=== PATIENT | male | born 1950 | race Caucasian/White ===

== ENCOUNTER 2020-03-09 11:30 | Inpatient (IN) ==
[2020-03-09] MEDS ORDERED: 0.9 % Sodium Chloride 1,000 ML IVC SCH (12:00)
[2020-03-09] MEDS ORDERED: *HR* Heparin 10,000 UNIT/10 ML VIAL ONE (12:54)
[2020-03-09] MEDS ORDERED: ISOVUE-370 200 ML INFUS..BTL ONE (12:54)
[2020-03-09] MEDS ORDERED: Heparin 1,000 UNITS/500 mL 500 ML ONE (12:54)
[2020-03-09] MEDS ORDERED: 0.9 % Sodium Chloride 1,000 ML ONE (12:54)
[2020-03-09] MEDS ORDERED: *HR* Midazolam HCl 2 MG/2 ML VIAL ONE ×2 (12:54→13:31)
[2020-03-09] MEDS ORDERED: Nitroglycerin 1,000 MCG/10 ML VIAL IV ONE (12:55)
[2020-03-09] MEDS ORDERED: Acetaminophen 325 MG TABLET PO PRN (13:57)
[2020-03-09 16:25] LABS: INR 1.1
[2020-03-09 16:27] LABS: Activated Partial Thrombo Time 32.7 Seconds (26.0-36.0)
[2020-03-09 16:39] LABS: BUN/Creatinine Ratio 15 (6-26); Blood Urea Nitrogen 14 mg/dL (8-23); Calcium 9.8 mg/dL (8.6-10.3); Carbon Dioxide 29 mEq/L (23-29); Chloride 101 mEq/L (98-107); Chol/HDL Ratio 3.9 (0-4.9); Cholesterol 141 mg/dL (< 200); Glucose 146 mg/dL (70-105); HDL Cholesterol 36 mg/dL (40-59); LDL Cholesterol,Calculated 69 mg/dL (< 100); Osmolality,Calculated 289 (280-300); Potassium 3.6 mEq/L (3.5-5.1); Sodium 138 mEq/L (136-145); Triglycerides 179 mg/dL (< 150); eGFR For African Americans > 60 (> 60); eGFR For Non-African Americans > 60 (> 60)
[2020-03-09 16:44] LABS: Basophils % 0.2 %; Eosinophils # 0.1 K/mcL (0.0-0.6); Eosinophils % 1.2 %; Hematocrit 45.6 % (37.5-50.1); Hemoglobin 15.9 g/dL (12.9-16.9); Immature Granulocytes % 0.1 % (0-4); Lymphocytes # 2.4 K/mcL (0.6-4.6); Lymphocytes % 28.7 %; Mean Corpuscular HGB Conc 34.9 g/dL (31.6-35.5); Mean Corpuscular Hemoglobin 30.5 pg (28.0-33.3); Mean Corpuscular Volume 87.4 fL (83.0-100.0); Mean Platelet Volume 9.9 fL (9.4-12.4); Monocytes # 0.4 K/mcL (0.0-1.3); Monocytes % 4.7 %; Neutrophils # 5.4 K/mcL (1.6-8.9); Platelet Count 219 K/mcL (140-400); Red Blood Count 5.22 M/mcL (4.19-5.50); Red Cell Distribution Width 12.7 % (11.5-14.5); Segmented Neutrophils % 65.1 %; White Blood Count 8.3 K/mcL (4.3-11.1)
[2020-03-09 18:00] LABS: Estimated Average Glucose 126 mg/dl
[2020-03-09] MEDS ORDERED: Chlorhexidine Rinse 15 ML MOUTHWASH MM SCH (21:00)
[2020-03-09] MEDS ORDERED: *HR* LORazepam 0.5 MG TABLET PO ONE (21:37)
[2020-03-10] MEDS ORDERED: Aspirin 81 MG TAB.CHEW PO ONE (06:00)
[2020-03-10] MEDS ORDERED: Papaverine 60 MG/2 ML VIAL IVP ONE (06:53)
[2020-03-10] MEDS ORDERED: *HR* FentaNYL (PF) 1,000 MCG/20 ML VIAL ONE (06:58)
[2020-03-10] MEDS ORDERED: *HR* Midazolam HCl 5 MG/5 ML VIAL IVP ONE (06:58)
[2020-03-10] MEDS ORDERED: *HR* Propofol 200 MG/20 ML VIAL IVP ONE (06:58)
[2020-03-10] MEDS ORDERED: *HR* Rocuronium Bromide 50 MG/5 ML VIAL ONE ×3 (07:00→11:59)
[2020-03-10] MEDS ORDERED: *HR* Magnesium Sulfate 1 GM/2 ML VIAL ONE (07:00)
[2020-03-10] MEDS ORDERED: Clindamycin 900 MG/50 ML 900 MG/50 ML IV.SOLN IVPB ONE ×2 (07:00→08:36)
[2020-03-10] MEDS ORDERED: Famotidine 20 MG/2 ML VIAL ONE (07:00)
[2020-03-10] MEDS ORDERED: Lidocaine 2% Syringe 100 MG/5 ML ONE (07:01)
[2020-03-10] MEDS ORDERED: Tranexamic Acid 1,000 MG/10 ML VIAL ONE (07:15)
[2020-03-10] MEDS ORDERED: Dextrose 50 % in Water (Vial) 30 ML, Sodium Bicarbonate 20 MEQ, Lidocaine 1% 5 ML, Insu... TH ONE ×3 (07:45)
[2020-03-10] MEDS ORDERED: Insulin Human Regular 100 UNIT in 0.9 % Sodium Chloride 100 ML IV PRN (07:45)
[2020-03-10] MEDS ORDERED: Heparin 15,000 UNIT in 0.9 % Sodium Chloride 500 ML IV ONE (07:45)
[2020-03-10] MEDS ORDERED: Norepinephrine 4 MG in 0.9 % Sodium Chloride 250 ML IVC PRN (07:45)
[2020-03-10] MEDS ORDERED: Dextrose 50 % in Water (Vial) 30 ML, Sodium Bicarbonate 20 MEQ, Potassium Chloride 15 M... TH ONE (07:45)
[2020-03-10 08:27] LABS: ABG Base Excess -1 mEq/L (-2 to 3); ABG Chloride 103 mEq/L (98-107); ABG Glucose 102 mg/dL (60-95); ABG HCO3 25 mEq/L (21-27); ABG Ionized Calcium 1.06 mmol/L (1.15-1.35); ABG Oxygen Saturation 100 % (95-98); ABG PCO2 44 mmHg (35-45); ABG PH 7.36 pH Units (7.32-7.45); ABG PO2 555 mmHg (85-104); ABG TCO2 26 mEq/L (20-26)
[2020-03-10 09:31] LABS: ABG Base Excess 1 mEq/L (-2 to 3); ABG Chloride 102 mEq/L (98-107); ABG Glucose 112 mg/dL (60-95); ABG HCO3 25 mEq/L (21-27); ABG Ionized Calcium 1.07 mmol/L (1.15-1.35); ABG Oxygen Saturation 100 % (95-98); ABG PCO2 39 mmHg (35-45); ABG PH 7.43 pH Units (7.32-7.45); ABG PO2 209 mmHg (85-104); ABG TCO2 27 mEq/L (20-26)
[2020-03-10] MEDS ORDERED: Calcium Gluconate 1,000 MG/10 ML VIAL ONE (10:17)
[2020-03-10] MEDS ORDERED: Protamine Sulfate 250 MG/25 ML VIAL IVP ONE (10:18)
[2020-03-10 10:53] LABS: ABG Base Excess 2 mEq/L (-2 to 3); ABG Chloride 97 mEq/L (98-107); ABG Glucose 161 mg/dL (60-95); ABG HCO3 26 mEq/L (21-27); ABG Ionized Calcium 1.03 mmol/L (1.15-1.35); ABG Oxygen Saturation 100 % (95-98); ABG PCO2 38 mmHg (35-45); ABG PH 7.44 pH Units (7.32-7.45); ABG PO2 543 mmHg (85-104); ABG TCO2 27 mEq/L (20-26)
[2020-03-10 11:02] LABS: ABG Base Excess 5 mEq/L (-2 to 3); ABG Chloride 97 mEq/L (98-107); ABG Glucose 114 mg/dL (60-95); ABG HCO3 28 mEq/L (21-27); ABG Ionized Calcium 1.29 mmol/L (1.15-1.35); ABG Oxygen Saturation 100 % (95-98); ABG PCO2 34 mmHg (35-45); ABG PH 7.52 pH Units (7.32-7.45); ABG PO2 509 mmHg (85-104); ABG TCO2 29 mEq/L (20-26)
[2020-03-10] MEDS ORDERED: Albumin Human 5% 12.5 GM/250 ML IV.SOLN ONE (11:20)
[2020-03-10] MEDS ORDERED: Albumin Human 5% 25.0 GM/500 ML IV.SOLN ONE (11:39)
[2020-03-10 11:41] LABS: ABG Base Excess 0 mEq/L (-2 to 3); ABG Chloride 102 mEq/L (98-107); ABG Glucose 95 mg/dL (60-95); ABG HCO3 24 mEq/L (21-27); ABG Ionized Calcium 1.12 mmol/L (1.15-1.35); ABG Oxygen Saturation 97 % (95-98); ABG PCO2 33 mmHg (35-45); ABG PH 7.46 pH Units (7.32-7.45); ABG PO2 88 mmHg (85-104); ABG TCO2 25 mEq/L (20-26)
[2020-03-10] MEDS ORDERED: Potassium Chloride 40 MEQ/200 ML BAG IVPB PRN (11:48)
[2020-03-10] MEDS ORDERED: Insulin Regular, Human 100 UNIT/ML IV PRN (11:48)
[2020-03-10] MEDS ORDERED: *HR* Dextrose 50 % in Water (Vial) 50 ML VIAL IVP PRN (11:48)
[2020-03-10] MEDS ORDERED: Acetaminophen 650 MG RECTAL SUPP RC PRN (11:51)
[2020-03-10] MEDS ORDERED: Albumin Human 5% 12.5 GM/250 ML IV.SOLN IVPB PRN (11:51)
[2020-03-10] MEDS ORDERED: Calcium Gluconate 1gm/50mL 1 GM/50 ML BAG IVPB PRN (11:51)
[2020-03-10] MEDS ORDERED: Naloxone 0.4 MG/ML INJ IVP PRN (11:51)
[2020-03-10] MEDS ORDERED: Ondansetron 4 MG/2 ML VIAL IVP PRN (11:51)
[2020-03-10] MEDS ORDERED: Insulin Human Regular 100 UNIT in 0.9 % Sodium Chloride 100 ML IVC SCH (12:00)
[2020-03-10] MEDS ORDERED: Norepinephrine 4 MG/254 ML IV.SOLN IVC SCH (12:00)
[2020-03-10] MEDS ORDERED: 0.9 % Sodium Chloride w KCl 20 MEQ/1,000 ML MLS IVC SCH (12:00)
[2020-03-10] MEDS ORDERED: niCARdipine 20 MG/200 ML MLS IVC ONE (12:33)
[2020-03-10] MEDS: niCARdipine 20 MG/200 ML MLS IVC SCH ×3 (12:45→20:39)
[2020-03-10 12:50] LABS: ABG Base Excess 3 mEq/L (-2 to 3); ABG HCO3 28 mEq/L (21-27); ABG Oxygen Saturation 95 % (95-98); ABG PCO2 43 mmHg (35-45); ABG PH 7.41 pH Units (7.32-7.45); ABG PO2 73 mmHg (85-104); ABG TCO2 29 mEq/L (20-26); Blood Gas Modality AF; Blood Gas VT 600 cc
[2020-03-10 12:58] LABS: Basophils % 0.2 %; Eosinophils # 0.1 K/mcL (0.0-0.6); Eosinophils % 0.6 %; Hematocrit 35.6 % (37.5-50.1); Hemoglobin 12.2 g/dL (12.9-16.9); Immature Granulocytes % 0.5 % (0-4); Lymphocytes # 1.5 K/mcL (0.6-4.6); Lymphocytes % 12.2 %; Mean Corpuscular HGB Conc 34.3 g/dL (31.6-35.5); Mean Corpuscular Hemoglobin 29.6 pg (28.0-33.3); Mean Corpuscular Volume 86.4 fL (83.0-100.0); Mean Platelet Volume 9.9 fL (9.4-12.4); Monocytes # 0.6 K/mcL (0.0-1.3); Monocytes % 4.9 %; Neutrophils # 10.1 K/mcL (1.6-8.9); Platelet Count 132 K/mcL (140-400); Red Blood Count 4.12 M/mcL (4.19-5.50); Red Cell Distribution Width 12.7 % (11.5-14.5); Segmented Neutrophils % 81.6 %; White Blood Count 12.4 K/mcL (4.3-11.1)
[2020-03-10] MEDS: Metoclopramide 10 MG/2 ML VIAL IVP SCH ×2 (13:05→18:05)
[2020-03-10] MEDS: *HR* FentaNYL (PF) 100 MCG/2 ML VIAL IVP PRN ×5 (13:10→22:03)
[2020-03-10 13:15] LABS: BUN/Creatinine Ratio 16 (6-26); Blood Urea Nitrogen 15 mg/dL (8-23); Calcium 9.1 mg/dL (8.6-10.3); Carbon Dioxide 28 mEq/L (23-29); Chloride 103 mEq/L (98-107); Glucose 111 mg/dL (70-105); Magnesium 2.9 mg/dL (1.6-2.6); Osmolality,Calculated 288 (280-300); Potassium 3.4 mEq/L (3.5-5.1); Sodium 138 mEq/L (136-145); eGFR For African Americans > 60 (> 60); eGFR For Non-African Americans > 60 (> 60)
[2020-03-10 13:17] LABS: INR 1.3
[2020-03-10 13:19] LABS: Activated Partial Thrombo Time 28.9 Seconds (26.0-36.0)
[2020-03-10 13:23] LABS: Prothrombin Time 15.1 Seconds (9.4-12.1)
[2020-03-10] MEDS: Pantoprazole 40 MG VIAL IVP SCH (14:01)
[2020-03-10] MEDS: *HR* OxyCODONE/APAP 5/325 TABLET PO PRN ×3 (14:02→22:05)
[2020-03-10 15:32] LABS: ABG Base Excess 2 mEq/L (-2 to 3); ABG HCO3 28 mEq/L (21-27); ABG Oxygen Saturation 92 % (95-98); ABG PCO2 48 mmHg (35-45); ABG PH 7.38 pH Units (7.32-7.45); ABG PO2 67 mmHg (85-104); ABG TCO2 30 mEq/L (20-26); Blood Gas Modality CPAP/PS; Blood Gas Pressure Support 10 cm H2O
[2020-03-10] MEDS: Clindamycin 900 MG/50 ML 900 MG/50 ML IV.SOLN IVPB SCH (16:08)
[2020-03-10 17:19] LABS: ABG Base Excess 2 mEq/L (-2 to 3); ABG HCO3 29 mEq/L (21-27); ABG Oxygen Saturation 97 % (95-98); ABG PCO2 54 mmHg (35-45); ABG PH 7.34 pH Units (7.32-7.45); ABG PO2 101 mmHg (85-104); ABG TCO2 31 mEq/L (20-26)
[2020-03-10] MEDS: Chlorhexidine Rinse 15 ML MOUTHWASH MM SCH (20:52)
[2020-03-10] MEDS ORDERED: Latanoprost 2.5 ML BOTTLE RIGHT EYE SCH (21:00)
[2020-03-11] MEDS: Metoclopramide 10 MG/2 ML VIAL IVP SCH ×5 (00:14→23:09)
[2020-03-11] MEDS: Clindamycin 900 MG/50 ML 900 MG/50 ML IV.SOLN IVPB SCH (00:15)
[2020-03-11] MEDS: niCARdipine 20 MG/200 ML MLS IVC SCH ×3 (00:16→08:46)
[2020-03-11] MEDS: *HR* FentaNYL (PF) 100 MCG/2 ML VIAL IVP PRN ×8 (00:16→20:37)
[2020-03-11] MEDS: *HR* OxyCODONE/APAP 5/325 TABLET PO PRN ×6 (02:07→23:09)
[2020-03-11 05:08] LABS: Basophils % 0.1 %; Eosinophils % 0.1 %; Hematocrit 35.7 % (37.5-50.1); Hemoglobin 12.1 g/dL (12.9-16.9); Immature Granulocytes % 0.5 % (0-4); Lymphocytes # 1.4 K/mcL (0.6-4.6); Lymphocytes % 11.8 %; Mean Corpuscular HGB Conc 33.9 g/dL (31.6-35.5); Mean Corpuscular Hemoglobin 29.9 pg (28.0-33.3); Mean Corpuscular Volume 88.1 fL (83.0-100.0); Mean Platelet Volume 10.3 fL (9.4-12.4); Monocytes % 8.3 %; Neutrophils # 9.5 K/mcL (1.6-8.9); Platelet Count 154 K/mcL (140-400); Red Blood Count 4.05 M/mcL (4.19-5.50); Red Cell Distribution Width 13.1 % (11.5-14.5); Segmented Neutrophils % 79.2 %
[2020-03-11 05:15] LABS: INR 1.2
[2020-03-11 05:17] LABS: Activated Partial Thrombo Time 25.6 Seconds (26.0-36.0)
[2020-03-11 05:29] LABS: BUN/Creatinine Ratio 18 (6-26); Blood Urea Nitrogen 17 mg/dL (8-23); Calcium 8.5 mg/dL (8.6-10.3); Carbon Dioxide 26 mEq/L (23-29); Chloride 103 mEq/L (98-107); Glucose 118 mg/dL (70-105); Magnesium 2.2 mg/dL (1.6-2.6); Osmolality,Calculated 285 (280-300); Potassium 3.9 mEq/L (3.5-5.1); Sodium 136 mEq/L (136-145); eGFR For African Americans > 60 (> 60); eGFR For Non-African Americans > 60 (> 60)
[2020-03-11] MEDS: Pantoprazole 40 MG VIAL IVP SCH (08:44)
[2020-03-11] MEDS: Chlorhexidine Rinse 15 ML MOUTHWASH MM SCH ×2 (08:45→20:38)
[2020-03-11] MEDS ORDERED: Furosemide 20 MG/2 ML VIAL IVP SCH (09:00)
[2020-03-11] MEDS ORDERED: Aspirin Enteric Coated 81 MG Tablet PO SCH (09:00)
[2020-03-11] MEDS ORDERED: Ondansetron 4 MG/2 ML VIAL IVP PRN (10:06)
[2020-03-11] MEDS ORDERED: Insulin Human Regular 100 UNIT in 0.9 % Sodium Chloride 100 ML IVC SCH (10:06)
[2020-03-11] MEDS ORDERED: D5% in Water 1,000 ML IVC PRN (10:06)
[2020-03-11] MEDS ORDERED: Dextrose Gel 15 GM/37.5 ML TUBE PO PRN ×2 (10:06)
[2020-03-11] MEDS ORDERED: Naloxone 0.4 MG/ML INJ IVP PRN (10:06)
[2020-03-11] MEDS ORDERED: Acetaminophen 325 MG TABLET PO PRN (10:06)
[2020-03-11] MEDS ORDERED: Amiodarone Premix 150 MG/100 ML BAG IVPB ONE (10:06)
[2020-03-11] MEDS ORDERED: Insulin Regular, Human 100 UNIT/ML IV PRN (10:06)
[2020-03-11] MEDS ORDERED: *HR* Dextrose 50 % in Water (Vial) 50 ML VIAL IVP PRN (10:06)
[2020-03-11] MEDS ORDERED: Amiodarone Premix 360 MG/200 ML BAG IVC ONE (10:06)
[2020-03-11] MEDS: Loratadine 10 MG TABLET PO SCH (10:32)
[2020-03-11] MEDS: Insulin LISPRO 300 UNITS/3 ML VIAL SQ SCH ×3 (11:51→20:29)
[2020-03-11] MEDS: Amiodarone Premix 360 MG/200 ML BAG IVC SCH (16:43)
[2020-03-11] MEDS: Furosemide 20 MG/2 ML VIAL IVP SCH (20:38)
[2020-03-11] MEDS: Latanoprost 2.5 ML BOTTLE RIGHT EYE SCH (20:57)
[2020-03-11] MEDS ORDERED: Latanoprost 2.5 ML BOTTLE RIGHT EYE SCH (21:00)
[2020-03-12] MEDS: *HR* FentaNYL (PF) 100 MCG/2 ML VIAL IVP PRN ×3 (00:16→10:24)
[2020-03-12] MEDS: *HR* OxyCODONE/APAP 5/325 TABLET PO PRN ×2 (03:19→08:33)
[2020-03-12] MEDS: Amiodarone Premix 360 MG/200 ML BAG IVC SCH ×2 (04:01→21:26)
[2020-03-12 05:48] LABS: Basophils % 0.1 %; Eosinophils # 0.1 K/mcL (0.0-0.6); Eosinophils % 0.5 %; Hematocrit 35.3 % (37.5-50.1); Immature Granulocytes % 0.3 % (0-4); Lymphocytes # 1.9 K/mcL (0.6-4.6); Lymphocytes % 12.7 %; Mean Corpuscular Hemoglobin 29.7 pg (28.0-33.3); Mean Corpuscular Volume 87.4 fL (83.0-100.0); Mean Platelet Volume 10.1 fL (9.4-12.4); Monocytes # 1.4 K/mcL (0.0-1.3); Monocytes % 9.6 %; Neutrophils # 11.2 K/mcL (1.6-8.9); Platelet Count 150 K/mcL (140-400); Red Blood Count 4.04 M/mcL (4.19-5.50); Red Cell Distribution Width 13.2 % (11.5-14.5); Segmented Neutrophils % 76.8 %; White Blood Count 14.6 K/mcL (4.3-11.1)
[2020-03-12] MEDS: Metoclopramide 10 MG/2 ML VIAL IVP SCH ×3 (06:03→19:31)
[2020-03-12 06:06] LABS: BUN/Creatinine Ratio 21 (6-26); Blood Urea Nitrogen 21 mg/dL (8-23); Calcium 8.3 mg/dL (8.6-10.3); Carbon Dioxide 27 mEq/L (23-29); Chloride 100 mEq/L (98-107); Glucose 134 mg/dL (70-105); Osmolality,Calculated 283 (280-300); Potassium 3.7 mEq/L (3.5-5.1); Sodium 134 mEq/L (136-145); eGFR For African Americans > 60 (> 60); eGFR For Non-African Americans > 60 (> 60)
[2020-03-12] MEDS: Insulin LISPRO 300 UNITS/3 ML VIAL SQ SCH ×4 (08:18→20:27)
[2020-03-12] MEDS: Aspirin Enteric Coated 81 MG Tablet PO SCH (08:33)
[2020-03-12] MEDS: Loratadine 10 MG TABLET PO SCH (08:33)
[2020-03-12] MEDS: Chlorhexidine Rinse 15 ML MOUTHWASH MM SCH ×2 (08:34→20:23)
[2020-03-12] MEDS: Furosemide 20 MG/2 ML VIAL IVP SCH ×2 (08:35→20:23)
[2020-03-12] MEDS: Pantoprazole 40 MG VIAL IVP SCH (08:35)
[2020-03-12] MEDS: *HR* OxyCODONE/APAP 7.5/325 TABLET PO PRN ×2 (12:50→16:44)
[2020-03-12] MEDS ORDERED: MOM Conc 10 ML UD.LIQ PO PRN (13:03)
[2020-03-12] MEDS ORDERED: Amiodarone Premix 360 MG/200 ML BAG IVC ONE (14:06)
[2020-03-12] MEDS: Latanoprost 2.5 ML BOTTLE RIGHT EYE SCH (20:24)
[2020-03-13] MEDS: *HR* OxyCODONE/APAP 7.5/325 TABLET PO PRN ×5 (00:05→16:53)
[2020-03-13] MEDS: Metoclopramide 10 MG/2 ML VIAL IVP SCH ×3 (00:06→11:04)
[2020-03-13] MEDS: Aspirin Enteric Coated 81 MG Tablet PO SCH (07:47)
[2020-03-13] MEDS: Loratadine 10 MG TABLET PO SCH (07:48)
[2020-03-13] MEDS: Furosemide 20 MG/2 ML VIAL IVP SCH ×2 (07:48→20:40)
[2020-03-13] MEDS: Pantoprazole 40 MG VIAL IVP SCH (07:48)
[2020-03-13] MEDS: hydroCHLOROthiazide 25 MG TABLET PO SCH (07:48)
[2020-03-13] MEDS: Chlorhexidine Rinse 15 ML MOUTHWASH MM SCH ×2 (07:49→20:39)
[2020-03-13] MEDS: Insulin LISPRO 300 UNITS/3 ML VIAL SQ SCH ×3 (07:59→16:54)
[2020-03-13] MEDS: Amiodarone Premix 360 MG/200 ML BAG IVC SCH (08:26)
[2020-03-13 12:18] LABS: Basophils % 0.1 %; Eosinophils # 0.1 K/mcL (0.0-0.6); Eosinophils % 0.9 %; Hematocrit 37.5 % (37.5-50.1); Hemoglobin 12.8 g/dL (12.9-16.9); Immature Granulocytes % 0.3 % (0-4); Lymphocytes # 1.4 K/mcL (0.6-4.6); Lymphocytes % 10.2 %; Mean Corpuscular HGB Conc 34.1 g/dL (31.6-35.5); Mean Corpuscular Hemoglobin 30.3 pg (28.0-33.3); Mean Corpuscular Volume 88.9 fL (83.0-100.0); Mean Platelet Volume 10.3 fL (9.4-12.4); Monocytes # 1.3 K/mcL (0.0-1.3); Monocytes % 9.7 %; Neutrophils # 10.8 K/mcL (1.6-8.9); Platelet Count 167 K/mcL (140-400); Red Blood Count 4.22 M/mcL (4.19-5.50); Red Cell Distribution Width 13.1 % (11.5-14.5); Segmented Neutrophils % 78.8 %; White Blood Count 13.7 K/mcL (4.3-11.1)
[2020-03-13 12:31] LABS: BUN/Creatinine Ratio 23 (6-26); Blood Urea Nitrogen 23 mg/dL (8-23); Calcium 8.4 mg/dL (8.6-10.3); Carbon Dioxide 27 mEq/L (23-29); Chloride 99 mEq/L (98-107); Glucose 127 mg/dL (70-105); Magnesium 1.9 mg/dL (1.6-2.6); Osmolality,Calculated 287 (280-300); Potassium 3.5 mEq/L (3.5-5.1); Sodium 136 mEq/L (136-145); eGFR For African Americans > 60 (> 60); eGFR For Non-African Americans > 60 (> 60)
[2020-03-13] MEDS: *HR* Amiodarone 200 MG TABLET PO SCH (14:03)
[2020-03-13] MEDS: Latanoprost 2.5 ML BOTTLE RIGHT EYE SCH (20:40)
[2020-03-14] MEDS: Insulin LISPRO 300 UNITS/3 ML VIAL SQ SCH ×5 (07:44→21:01)
[2020-03-14] MEDS: *HR* OxyCODONE/APAP 7.5/325 TABLET PO PRN ×3 (08:08→20:53)
[2020-03-14] MEDS: Loratadine 10 MG TABLET PO SCH (08:09)
[2020-03-14] MEDS: Aspirin Enteric Coated 81 MG Tablet PO SCH (08:09)
[2020-03-14] MEDS: Chlorhexidine Rinse 15 ML MOUTHWASH MM SCH ×2 (08:09→20:53)
[2020-03-14] MEDS: *HR* Amiodarone 200 MG TABLET PO SCH (08:09)
[2020-03-14] MEDS: hydroCHLOROthiazide 25 MG TABLET PO SCH (08:10)
[2020-03-14] MEDS: Pantoprazole 40 MG VIAL IVP SCH (08:10)
[2020-03-14] MEDS: Latanoprost 2.5 ML BOTTLE RIGHT EYE SCH (21:30)
[2020-03-15] MEDS: *HR* OxyCODONE/APAP 7.5/325 TABLET PO PRN ×4 (00:58→18:33)
[2020-03-15] MEDS: Insulin LISPRO 300 UNITS/3 ML VIAL SQ SCH ×4 (08:36→20:33)
[2020-03-15] MEDS: hydroCHLOROthiazide 25 MG TABLET PO SCH (08:45)
[2020-03-15] MEDS: Aspirin Enteric Coated 81 MG Tablet PO SCH (08:45)
[2020-03-15] MEDS: levoFLOXacin 500 MG TABLET PO SCH (08:45)
[2020-03-15] MEDS: *HR* Amiodarone 200 MG TABLET PO SCH (08:45)
[2020-03-15] MEDS: Pantoprazole 40 MG VIAL IVP SCH (08:46)
[2020-03-15] MEDS: Chlorhexidine Rinse 15 ML MOUTHWASH MM SCH ×2 (08:46→20:35)
[2020-03-15] MEDS: Loratadine 10 MG TABLET PO SCH (08:46)
[2020-03-15] MEDS: Latanoprost 2.5 ML BOTTLE RIGHT EYE SCH (20:36)
[2020-03-16] MEDS: *HR* OxyCODONE/APAP 7.5/325 TABLET PO PRN ×2 (00:52→12:47)
[2020-03-16] MEDS: Insulin LISPRO 300 UNITS/3 ML VIAL SQ SCH ×4 (08:35→20:44)
[2020-03-16] MEDS: levoFLOXacin 500 MG TABLET PO SCH (08:36)
[2020-03-16] MEDS: *HR* Amiodarone 200 MG TABLET PO SCH (08:36)
[2020-03-16] MEDS: Aspirin Enteric Coated 81 MG Tablet PO SCH (08:37)
[2020-03-16] MEDS: Loratadine 10 MG TABLET PO SCH (08:37)
[2020-03-16] MEDS: hydroCHLOROthiazide 25 MG TABLET PO SCH (08:37)
[2020-03-16] MEDS: Chlorhexidine Rinse 15 ML MOUTHWASH MM SCH ×2 (08:37→20:43)
[2020-03-16] MEDS: Pantoprazole 40 MG VIAL IVP SCH (08:38)
[2020-03-16] MEDS: Ibuprofen 600 MG TABLET PO SCH ×2 (15:23→20:43)
[2020-03-16] MEDS: *HR* Heparin 5,000 UNIT/ML VIAL SQ SCH (18:06)
[2020-03-16] MEDS: Latanoprost 2.5 ML BOTTLE RIGHT EYE SCH (21:04)
[2020-03-17] MEDS: *HR* Heparin 5,000 UNIT/ML VIAL SQ SCH (06:30)
[2020-03-17] MEDS: Insulin LISPRO 300 UNITS/3 ML VIAL SQ SCH (08:17)
[2020-03-17] MEDS: Pantoprazole 40 MG VIAL IVP SCH (08:18)
[2020-03-17] MEDS: hydroCHLOROthiazide 25 MG TABLET PO SCH (08:19)
[2020-03-17] MEDS: Ibuprofen 600 MG TABLET PO SCH (08:20)
[2020-03-17] MEDS: Loratadine 10 MG TABLET PO SCH (08:21)
[2020-03-17] MEDS: Aspirin Enteric Coated 81 MG Tablet PO SCH (08:25)
[2020-03-17] MEDS: Chlorhexidine Rinse 15 ML MOUTHWASH MM SCH (08:26)
[2020-03-17] MEDS: levoFLOXacin 500 MG TABLET PO SCH (08:26)
[2020-03-17] MEDS: *HR* Amiodarone 200 MG TABLET PO SCH (08:26)
[2020-03-17] MEDS ORDERED: FLU Vac QV 20-21 (6Month+)/PF 0.5 ML SYRINGE IM ONE (08:48)
[2020-03-17 10:49] VITALS: BP 133/76
== END 2020-03-17 11:35 | disposition home or self-care (01) | DRG 234 ==
LOC: INVDIALAB 11:30 → ICNU 15:49 → 2NNU 03-11 16:09
PROVIDERS: ADMIT Internal Medicine Cardiovascular Disease; ATTEND Thoracic Surgery (Cardiothoracic Vascular Surgery)

== ENCOUNTER 2020-04-15 06:01 | Observation (INO) ==
[2020-04-15] MEDS ORDERED: Aspirin 81 MG TAB.CHEW PO ONE (06:29)
[2020-04-15 08:06] LABS: Basophils # 0.1 K/mcL (0.0-0.2); Basophils % 0.7 %; Eosinophils # 0.9 K/mcL (0.0-0.6); Eosinophils % 12.9 %; Hematocrit 36.4 % (37.5-50.1); Hemoglobin 12.2 g/dL (12.9-16.9); Immature Granulocytes % 0.4 % (0-4); Lymphocytes # 2.1 K/mcL (0.6-4.6); Lymphocytes % 29.3 %; Mean Corpuscular HGB Conc 33.5 g/dL (31.6-35.5); Mean Corpuscular Hemoglobin 28.8 pg (28.0-33.3); Mean Corpuscular Volume 85.8 fL (83.0-100.0); Mean Platelet Volume 9.5 fL (9.4-12.4); Monocytes # 0.5 K/mcL (0.0-1.3); Monocytes % 7.2 %; Neutrophils # 3.5 K/mcL (1.6-8.9); Platelet Count 230 K/mcL (140-400); Red Blood Count 4.24 M/mcL (4.19-5.50); Red Cell Distribution Width 13.5 % (11.5-14.5); Segmented Neutrophils % 49.5 %
[2020-04-15 08:07] LABS: INR 1.1; Prothrombin Time 13.1 Seconds (9.4-12.1)
[2020-04-15 08:10] LABS: Activated Partial Thrombo Time 28.3 Seconds (26.0-36.0)
[2020-04-15 08:19] LABS: BUN/Creatinine Ratio 18 (6-26); Blood Urea Nitrogen 17 mg/dL (8-23); Carbon Dioxide 27 mEq/L (23-29); Chloride 105 mEq/L (98-107); Glucose 98 mg/dL (70-105); Osmolality,Calculated 288 (280-300); Sodium 138 mEq/L (136-145); Troponin I < 0.03 ng/mL (< 0.04); eGFR For African Americans > 60 (> 60); eGFR For Non-African Americans > 60 (> 60)
[2020-04-15] MEDS ORDERED: Naloxone 0.4 MG/ML INJ IVP PRN (09:04)
[2020-04-15] MEDS ORDERED: Perflutren Lipid Microsphere 1.3 ML in 0.9 % Sodium Chloride 8.7 ML IVP PRN (09:06)
[2020-04-15] MEDS ORDERED: hydrOXYzine pamoate 25 MG CAPSULE PO PRN (09:07)
[2020-04-15] MEDS ORDERED: Sennosides/Docusate Sodium TABLET PO PRN (09:07)
[2020-04-15 09:27] LABS: Adenovirus Not Detected (Not Detect); Bordetella Pertussis Not Detected (Not Detect); Chlamydophila pneumoniae Not Detected (Not Detect); Coronavirus 229E Not Detected (Not Detect); Coronavirus HKU1 Not Detected (Not Detect); Coronavirus NL63 Not Detected (Not Detect); Coronavirus OC43 Not Detected (Not Detect); Human Metapneumovirus Not Detected (Not Detect); Human Rhinovirus/Enterovirus Not Detected (Not Detect); Influenza A Subtype 2009 H1 Not Detected (Not Detect); Influenza B Not Detected (Not Detect); Mycoplasma pneumoniae Not Detected (Not Detect); Parainfluenza Virus 1 Not Detected (Not Detect); Parainfluenza Virus 2 Not Detected (Not Detect); Parainfluenza Virus 3 Not Detected (Not Detect); Parainfluenza Virus 4 Not Detected (Not Detect); Respiratory Syncytial Virus Not Detected (Not Detect)
[2020-04-15] MEDS ORDERED: *HR* HYDROmorphone (PF) 1 MG/ML SYRINGE IVP ONE (10:03)
[2020-04-15 10:30] LABS: Adenovirus Not Detected (Not Detect); Bordetella Pertussis Not Detected (Not Detect); Chlamydophila pneumoniae Not Detected (Not Detect); Coronavirus 229E Not Detected (Not Detect); Coronavirus HKU1 Not Detected (Not Detect); Coronavirus NL63 Not Detected (Not Detect); Coronavirus OC43 Not Detected (Not Detect); Human Metapneumovirus Not Detected (Not Detect); Human Rhinovirus/Enterovirus Not Detected (Not Detect); Influenza A Subtype 2009 H1 Not Detected (Not Detect); Influenza B Not Detected (Not Detect); Mycoplasma pneumoniae Not Detected (Not Detect); Parainfluenza Virus 1 Not Detected (Not Detect); Parainfluenza Virus 2 Not Detected (Not Detect); Parainfluenza Virus 3 Not Detected (Not Detect); Parainfluenza Virus 4 Not Detected (Not Detect); Respiratory Syncytial Virus Not Detected (Not Detect); SARS-CoV-2 Not Detected (Not Detect)
[2020-04-15] MEDS: Isosorbide MONOnitrate (24 HR) 30 MG TAB.ER.24H PO SCH (12:26)
[2020-04-15] MEDS: Loratadine 10 MG TABLET PO SCH (13:41)
[2020-04-15] MEDS: hydroCHLOROthiazide 25 MG TABLET PO SCH (13:41)
[2020-04-15] MEDS: *HR* Heparin 5,000 UNIT/ML VIAL SQ SCH (17:54)
[2020-04-15] MEDS: Fluticasone Propionate Nasal 50 MCG/SPRAY BOTTLE NS SCH (22:46)
[2020-04-16 02:27] LABS: Basophils % 0.4 %; Eosinophils # 0.7 K/mcL (0.0-0.6); Eosinophils % 7.8 %; Hematocrit 33.4 % (37.5-50.1); Hemoglobin 11.2 g/dL (12.9-16.9); Immature Granulocytes % 0.2 % (0-4); Lymphocytes # 2.5 K/mcL (0.6-4.6); Lymphocytes % 26.8 %; Mean Corpuscular HGB Conc 33.5 g/dL (31.6-35.5); Mean Corpuscular Hemoglobin 29.4 pg (28.0-33.3); Mean Corpuscular Volume 87.7 fL (83.0-100.0); Mean Platelet Volume 10.2 fL (9.4-12.4); Monocytes # 0.6 K/mcL (0.0-1.3); Monocytes % 6.2 %; Neutrophils # 5.4 K/mcL (1.6-8.9); Platelet Count 214 K/mcL (140-400); Red Blood Count 3.81 M/mcL (4.19-5.50); Red Cell Distribution Width 13.6 % (11.5-14.5); Segmented Neutrophils % 58.6 %; White Blood Count 9.2 K/mcL (4.3-11.1)
[2020-04-16 02:43] LABS: BUN/Creatinine Ratio 20 (6-26); Blood Urea Nitrogen 19 mg/dL (8-23); Calcium 8.5 mg/dL (8.6-10.3); Carbon Dioxide 25 mEq/L (23-29); Chloride 104 mEq/L (98-107); Chol/HDL Ratio 5.1 (0-4.9); Cholesterol 147 mg/dL (< 200); Glucose 93 mg/dL (70-105); HDL Cholesterol 29 mg/dL (40-59); LDL Cholesterol,Calculated 78 mg/dL (< 100); Osmolality,Calculated 288 (280-300); Potassium 3.7 mEq/L (3.5-5.1); Sodium 138 mEq/L (136-145); Triglycerides 200 mg/dL (< 150); eGFR For African Americans > 60 (> 60); eGFR For Non-African Americans > 60 (> 60)
[2020-04-16] MEDS: *HR* Heparin 5,000 UNIT/ML VIAL SQ SCH (06:03)
[2020-04-16] MEDS ORDERED: Aspirin Enteric Coated 325 MG Tablet PO SCH (09:00)
[2020-04-16] MEDS: hydroCHLOROthiazide 25 MG TABLET PO SCH (09:58)
[2020-04-16] MEDS: Isosorbide MONOnitrate (24 HR) 30 MG TAB.ER.24H PO SCH (09:58)
[2020-04-16] MEDS: Loratadine 10 MG TABLET PO SCH (09:58)
[2020-04-16] MEDS: Fluticasone Propionate Nasal 50 MCG/SPRAY BOTTLE NS SCH (09:59)
[2020-04-16 11:04] VITALS: BP 143/67
== END 2020-04-16 14:14 | disposition home or self-care (01) ==
LOC: EMEROOARM 06:01 → 3BNU 06:01 → SUATTDRO 09:58 → 3BNU 11:37
PROVIDERS: ADMIT Internal Medicine; ATTEND Internal Medicine